=== PATIENT | male | born 1980 | race Two or more races ===

== ENCOUNTER 2025-03-11 02:20 | Emergency (ER) | payer OTHER ==
[~2025-03-11] VITALS: Ht 175.3 cm; Wt 81.6 kg
[2025-03-11] MEDS ORDERED: ATORVASTATIN CA20 MG PO (02:54)
[2025-03-11] MEDS ORDERED: HALOPERIDOL LACTATE 5 MG/ML AMPUL IM STA (03:46)
[2025-03-11] MEDS ORDERED: DIPHENHYDRAMINE HCL 50 MG/ML VIAL 1ML IM STA (03:46)
[2025-03-11] MEDS ORDERED: KETOROLAC TROMETHAMINE 30 MG VIAL IV STA (03:47)
[2025-03-11] MEDS ORDERED: DEXAMETHASONE SODIUM PHOSPHATE 4 MG/ML VIAL IV STA (03:47)
[2025-03-11] MEDS ORDERED: METOCLOPRAMIDE HCL 5 MG/ML VIAL IM STA (04:08)
== END 2025-03-11 05:55 | disposition home or self-care (01) ==
LOC: ER 02:20
DX: G43.909 Migraine, unspecified, not intractable, without status migrainosus (principal)